=== PATIENT | female | born 1955 | race Caucasian/White ===

== ENCOUNTER 2020-05-21 05:03 | Emergency (ER) | payer MEDICARE, BC ==
[2020-05-21] MEDS ORDERED: Ondansetron 4 MG/2 ML SDV IVPUSH ONE (05:26)
[2020-05-21] MEDS ORDERED: HYDROmorphone 1 MG/ML Syringe IVPUSH ONE (05:26)
[2020-05-21] MEDS ORDERED: Sodium Chloride 0.9% 1,000 ML IV SCH (05:30)
[2020-05-21] MEDS ORDERED: Iopamidol 755 Mg/ML 100 ML Bottle IVPUSH ONE (05:33)
[2020-05-21] MEDS ORDERED: Sodium Chloride 0.9% 10 ML Syringe FLUSH PRN (05:33)
--- NOTE | 2020-05-21 05:33 | EDM.PDOC ---
ED HPI GENERAL MEDICAL PROBLEM - General Chief Complaint: Back Pain or Injury Stated Complaint: PAIN IN BACK AND DOWN LEFT ARM Time Seen by Provider: 05/21/20 05:08 Source of Information: Reports: Patient, Family () History Limitations: Reports: No Limitations - History of Present Illness INITIAL COMMENTS - FREE TEXT/NARRATIVE: Mrs. Montanez is a very pleasant 64-year-old woman with past medical history significant for lumbar degenerative disc disease and a L1 compression fracture that occurred on 01/24/2019, when she fell onto her back. She states that while it has been recommended that she have a lumbar fusion to address her lumbar disc disease, no surgery was recommended to address the compression fracture. She now presents to the ED stating that she woke with significant upper back pain, felt primarily between the scapula, although more on the left than the right, with radiation down her left upper extremity to the elbow, yesterday morning, 05/20/2020. She states that the pain is sharp and burning in character, but also states that she is not really sure. She has not identified any modifiers of the pain. She denies associated symptoms, such as anterior chest pain, palpitations, dyspnea, nausea, or diaphoresis. She denies left upper extremity weakness. No prior similar symptoms. The patient states that she took 3 baby aspirin this morning, otherwise, she has not taken any medications to treat her symptoms. Here in the ED, the patient's initial BP is found to be mildly elevated at 147/90, otherwise, she is hemodynamically stable, afebrile, saturating 97% on room air. Other than the patient's current symptoms, the patient denies recent fever, chills, sore throat, ear pain, nasal or sinus congestion, cough, dyspnea, chest pain, palpitations, nausea, vomiting, constipation, diarrhea, abdominal pain, urinary symptoms, recent weight gain or weight loss, recent bloody bowel movements or black bowel movements, recent joint aches, headaches, or rashes. The patient's PCP is KRISTA Maier, in [place]. Middle Back Pain Score (Numeric/FACES): 8 - Related Data Allergies Allergy/AdvReac Type Severity Reaction Status Date / Time No Known Allergies Allergy Verified 05/21/20 05:35 Home Meds: Home Meds Orphenadrine [Norflex] 1 tab PO Q12H PRN #14 tab.er 05/21/20 [Rx] Past Medical History HEENT History: Reports: Impaired Vision (wears glasses) Musculoskeletal History: Reports: Back Pain, Chronic (due to lumbar DDD), Fracture (L1 compression, 01/24/2019), Osteoarthritis Endocrine/Metabolic History: Reports: Other (See Below) (Prediabetes) - Past Surgical History Female Surgical History: Reports: Section (x 1), Tubal Ligation Musculoskeletal Surgical History: Reports: Knee Replacement (right) Social & Family History - Tobacco Use Smoking Status *Q: Current Every Day Smoker Years of Tobacco use: 42 Packs/Tins Daily: 0.5 Packs/Tins Daily Comment: Down from more than 1/2 ppd - Alcohol Use Alcohol Use History: No - Recreational Drug Use Recreational Drug Use: No - Living Situation & Occupation Living situation: Reports: , with Spouse 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 ED EXAM, UPPER BACK/NECK PAIN - Physical Exam Exam: See Below Exam Limited By: No Limitations General Appearance: Alert, WD/WN, Mild Distress (appears uncomfortable) Eye Exam: Bilateral Eye: EOMI, Normal Inspection Ears Exam: Normal External Exam, Hearing Grossly Normal Nose Exam: Normal Inspection Throat/Mouth Exam: Normal Inspection, Normal Lips, Normal Voice, No Airway Compromise Head Exam: Atraumatic, Normocephalic Neck Exam: Full Range of Motion, Normal Alignment, Normal Inspection Cardiovascular/Respiratory: Regular Rate, Rhythm, No M/R/G, Normal Peripheral Pulses, No JVD, Normal Breath Sounds, No Respiratory Distress GI/Abdominal: Normal Bowel Sounds, Soft, Non-Tender, No Organomegaly, No Distention, No Abnormal Bruit, No Mass (Female) Exam: Deferred Rectal (Female) Exam: Deferred Back Exam: Normal Inspection (no visible abnormality the patient's upper back, such as swelling, erythema, ecchymosis, or abrasion), Full Range of Motion. 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 As Tested, No Motor/Sensory Deficits, Alert, Oriented x 3 Psychiatric: Normal Affect Skin Exam: Normal Color, Warm/Dry EKG INTERPRETATION EKG Date: 05/21/20 Time: 05:33 Rhythm: NSR Rate (Beats/Min): 80 [place]: Normal P-Wave: Present QRS: Normal ST-T: Normal QT: Normal Comparison: NA - No Prior EKG Course - Vital Signs Last Recorded V/S: Last Vital Signs Temp Pulse 85 05/21/20 05:11 Resp 20 05/21/20 05:11 BP 147/90 H 05/21/20 05:11 Pulse Ox 97 05/21/20 05:11 - Orders/Labs/Meds Orders: Active Orders 24 hr Category Date Time Status EKG Documentation Completion [RC] STAT Care 05/21/20 05:25 Active Ang Chest [CT] Stat Exams 05/21/20 05:23 Taken Sodium Chloride 0.9% [Normal Saline] 1,000 ml Med 05/21/20 05:30 Active IV ASDIRECTED Sodium Chloride 0.9% [Normal Saline] 100 ml Med 05/21/20 05:45 Active IV ASDIRECTED Sodium Chloride 0.9% [Saline Flush] Med 05/21/20 05:33 Active 10 ml FLUSH ONETIME PRN Medication Orders Sodium Chloride (Normal Saline) 1,000 mls @ 100 mls/hr IV ASDIRECTED LYNNETTE Last Admin: 05/21/20 05:35 Dose: 100 mls/hr Documented by: KIERAN Sodium Chloride (Normal Saline) 100 mls @ 60 mls/hr IV ASDIRECTED LYNNETTE Last Admin: 05/21/20 05:55 Dose: 60 mls/hr Documented by: LM Sodium Chloride (Saline Flush) 10 ml FLUSH ONETIME PRN PRN Reason: Keep Vein Open Last Admin: 05/21/20 05:55 Dose: 10 ml Documented by: LM Labs: Laboratory Tests 05/21/20 05/21/20 Range/Units 05:29 05:29 WBC 8.71 (3.98-10.04) K/mm3 RBC 5.42 H (3.98-5.22) M/mm3 Hgb 16.9 H (11.2-15.7) gm/dl Hct 52.0 H (34.1-44.9) % MCV 95.9 H (79.4-94.8) fl MCH 31.2 (25.6-32.2) pg MCHC 32.5 (32.2-35.5) g/dl RDW Std Deviation 48.4 H (36.4-46.3) fL Plt Count 299 (182-369) K/mm3 MPV 10.2 (9.4-12.3) fl Neutrophils % (Manual) 59 (40-60) % Band Neutrophils % 0 (0-10) % Lymphocytes % (Manual) 32 (20-40) % Atypical Lymphs % 0 % Monocytes % (Manual) 7 (2-10) % Eosinophils % (Manual) 2 (0.7-5.8) % Basophils % (Manual) 0 L (0.1-1.2) Platelet Estimate Adequate RBC Morph Comment Normal Sodium 140 (136-145) mEq/L Potassium 3.9 (3.5-5.1) mEq/L Chloride 102 (98-107) mEq/L Carbon Dioxide 27 (21-32) mEq/L Anion Gap 14.9 (5-15) BUN 9 (7-18) mg/dL Creatinine 0.8 (0.55-1.02) mg/dL Est Cr Clr Drug Dosing 64.76 mL/min Estimated GFR (MDRD) > 60 (>60) mL/min BUN/Creatinine Ratio 11.3 L (14-18) Glucose 138 H (80-115) mg/dL Calcium 9.1 (8.5-10.1) mg/dL Magnesium 1.9 (1.8-2.4) mg/dl Total Bilirubin 0.2 (0.2-1.0) mg/dL AST 17 (15-37) U/L ALT 25 (14-59) U/L Alkaline Phosphatase 119 H (46-116) U/L Troponin I < 0.017 (0.00-0.056) ng/mL Total Protein 8.2 (6.4-8.2) g/dl Albumin 3.9 (3.4-5.0) g/dl Globulin 4.3 gm/dL Albumin/Globulin Ratio 0.9 L (1-2) Meds: Medications Generic Name Dose Route Start Last Admin Trade Name Freq PRN Reason Stop Dose Admin Sodium Chloride 1,000 mls @ 100 mls/hr 05/21/20 05:30 05/21/20 05:35 Normal Saline IV 100 mls/hr ASDIRECTED LYNNETTE Administration Sodium Chloride 100 mls @ 60 mls/hr 05/21/20 05:45 05/21/20 05:55 Normal Saline IV 60 mls/hr ASDIRECTED LYNNETTE Administration Sodium Chloride 10 ml 05/21/20 05:33 05/21/20 05:55 Saline Flush FLUSH 10 ml ONETIME PRN Administration Keep Vein Open Discontinued Medications Generic Name Dose Route Start Last Admin Trade Name Choloq PRN Reason Stop Dose Admin Hydromorphone HCl 1 mg 05/21/20 05:26 05/21/20 05:37 Dilaudid IVPUSH 05/21/20 05:27 1 mg ONETIME ONE Administration Iopamidol 100 ml 05/21/20 05:33 05/21/20 05:55 Isovue-370 (76%) IVPUSH 05/21/20 05:34 100 ml ONETIME ONE Administration Ondansetron HCl 4 mg 05/21/20 05:26 05/21/20 05:35 Zofran IVPUSH 05/21/20 05:27 4 mg ONETIME ONE Administration - Re-Assessments/Exams Free Text/Narrative Re-Assessment/Exam: 05/21/20 05:27 As above, the patient developed upper back pain, felt primarily between her scapulae, more on the left than the right, with radiation down her left upper extremity to her elbow, yesterday morning. Her pain is not modifiable, nor is it reproducible with palpation. No other symptoms, such as anterior chest pain, dyspnea, or palpitations. The etiology is not immediately clear, however, a worse case scenario would have to include an aortic dissection, therefore I have ordered a thoracic aortogram, along with blood work and an ECG. The aortogram will have the added benefit of being able to visualize the patient's thoracic vertebrae, in case her pain is due to an anatomic issue there. In the meantime, the patient will be given IV Dilaudid, IV Zofran, and IV fluid. 05/21/20 06:12 The patient's CBC is remarkable for a H/H elevated at 16.9/52.0, with the remainder of her CBC being unremarkable. Her CMP is remarkable for blood glucose mildly elevated at 138, and an alkaline phosphatase slightly elevated at 119, with the remainder of her CMP being unremarkable. Her magnesium level is within normal limits at 1.9. Her troponin is undetectably low. 05/21/20 06:40 CT angiogram of the chest is read by [facility] as: 1. No CT evidence of acute pulmonary embolism. 2. No CT evidence of acute aortic dissection, aneurysm or acute intramural thoracic aortic hematoma. 3. Borderline enlarged lymph nodes are present in the mediastinum and bilateral hilar areas. The largest lymph node measures 1.6 x 1.6 cm in the right pulmonary hilum on image 27 of series 4. 4. A questionable old chronic anterior wedge compression fracture involving the inferior vertebral body endplate of L1 is present with mild, less than 15% retrolisthesis of L1 upon L2 together with diminished disc height and vacuum disc phenomenon at the L1-L2 level. 5. Moderate chronic degenerative vertebral body endplate osteophytic disease is seen in the mid to lower thoracic spine. 6. Small subcentimeter hypodense nodules are present in the left thyroid lobe. No suspicious findings of soft tissue invasion or regional lymphadenopathy. No follow-up is recommended. 05/21/20 06:50 Test results discussed with the patient and her . As above, today's work-up is unremarkable and does not explain the cause of her pain, however, with the negative work-up, I suspect that her pain is musculoskeletal in etiology. For that reason, I am recommending that we start her on Norflex and ibuprofen. The patient agreed. I will submit a prescription for Norflex to the only pharmacy that will be open today = the [facility] in the [employer] store, which will only be open between 1:00 and 3:00 PM, today being May 21. The patient can take that along with [id number] ibuprofen. If she continues to have the same pain by 05/23/2020, I would like her to follow- up with her PCP for additional evaluation that may involve an MRI. Departure - Departure Time of Disposition: 06:52 Disposition: Home, Self-Care 01 Condition: Good Clinical Impression: Back pain - Discharge Information *PRESCRIPTION DRUG MONITORING PROGRAM REVIEWED*: Not Applicable *COPY OF PRESCRIPTION DRUG MONITORING REPORT IN PATIENT TOÑO: Not Applicable Referrals: Veena Yepez PA [Primary Care Provider] - Forms: ED Department Discharge Additional Instructions: You were seen in the emergency room after waking with upper back and left upper arm pain yesterday morning. Work-up in the ER included blood work, a CT angiogram of your chest, and an ECG. Your entire work-up was unremarkable, and does not explain the cause of your symptoms. You do not have an aortic dissection. You have not suffered a heart attack. You do not have a blood clot in your lungs. You do not have pneumonia. You do not have a collapsed lung. No broken bones or significant anatomic abnormalities were found in your spine. Based on your history, physical exam, and ER tests, the cause of your back and arm pain is thought to be due to a muscle spasm. You have been started on the muscle relaxant Norflex, and a prescription for Norflex has been sent to the [facility] located in the [employer] store. Because today is May 21, the pharmacy will be open only between the hours of 1:00 and 3:00 this afternoon. Take 1 tablet of Norflex every 12 hours, starting this evening, 05/21/2020, as prescribed. Norflex works well with ibuprofen. We recommend that you take 3 tablets (600 mg) every 8 hours, with food, as needed for discomfort. If you are still having significant pain by 05/23/2020, we recommend that you follow-up with your PCP, KRISTA Maier, for further evaluation that mi ght include an MRI. If any other problems, please do not hesitate to return to the ER. Sepsis Event Note (ED) - Evaluation Sepsis Screening Result: No Definite Risk - Focused Exam Vital Signs: Vital Signs Pulse Resp BP Pulse Ox 05/21/20 05:11 85 20 147/90 H 97 - My Orders Last 24 Hours: My Active Orders 05/21/20 05:23 Ang Chest [CT] Stat 05/21/20 05:25 EKG Documentation Completion [RC] STAT 05/21/20 05:30 Sodium Chloride 0.9% [Normal Saline] 1,000 ml IV ASDIRECTED 05/21/20 05:33 Sodium Chloride 0.9% [Saline Flush] 10 ml FLUSH ONETIME PRN 05/21/20 05:45 Sodium Chloride 0.9% [Normal Saline] 100 ml IV ASDIRECTED - Assessment/Plan Last 24 Hours: My Active Orders 05/21/20 05:23 Ang Chest [CT] Stat 05/21/20 05:25 EKG Documentation Completion [RC] STAT 05/21/20 05:30 Sodium Chloride 0.9% [Normal Saline] 1,000 ml IV ASDIRECTED 05/21/20 05:33 Sodium Chloride 0.9% [Saline Flush] 10 ml FLUSH ONETIME PRN 05/21/20 05:45 Sodium Chloride 0.9% [Normal Saline] 100 ml IV ASDIRECTED
[2020-05-21] MEDS ORDERED: Sodium Chloride 0.9% 100 ML IV SCH (05:45)
[2020-05-21] MEDS ORDERED: Orphenadrine 100 MG Tab.ER PO STA (06:50)
[2020-05-21] MEDS ORDERED: Ibuprofen 600 MG Tab PO ONE (06:50)
--- NOTE | 2020-05-21 09:45 | CT ---
CT chest Technique: Multiple axial sections were obtained from above the lung apices inferiorly through the lung bases. Intravenous contrast was utilized. Comparison: No prior chest imaging is available. Findings: Several small nonenhancing lesions are noted within the left lobe of the thyroid gland believed to be incidental. Aorta shows no aneurysm. No evidence of thoracic aortic dissection. Visualized pulmonary arteries show no filling defects of pulmonary embolism. Mediastinum shows mildly prominent lymph nodes measuring up to 2.3 cm. No pericardial thickening is seen. Visualized upper abdominal structures shows atherosclerotic change within the abdominal aorta with no aneurysm. No focal abnormality appreciated within the upper abdomen. Lung window settings were reviewed which shows scattered emphysematous change without acute pulmonary process being seen. Bone window settings were reviewed which shows scattered degenerative change throughout the spine. There is previous fracture within the inferior and superior endplate of L1. Margins of this are fairly smooth and this is most likely old. Mild spondylolisthesis is noted of L1 on L2 by about 5 mm. Impression: 1. Slightly prominent mediastinal lymph nodes. This may relate to old inflammatory process although recommend contrast enhanced chest CT in 6 months to confirm stability. This follow-up chest CT would occur in October,. 2. Old appearing fracture within the inferior and anterior aspect of L1. Degenerative change as noted above. 3. No findings of abdominal aortic aneurysm or aortic dissection. No pulmonary embolism seen within the visualized pulmonary arteries. 4. Other findings believed to be nonacute as described above. Diagnostic code #9 This report was dictated in MDT I agree with preliminary report from [facility], finalized on 05/21/20, 7:37 AM Central Daylight Time
== END 2020-05-21 07:08 | disposition home or self-care (01) ==
LOC: JD.ED 05:03
DX: M54.6 Pain in thoracic spine (principal); F17.210 Nicotine dependence, cigarettes, uncomplicated; Z79.82 Long term (current) use of aspirin
CPT/HCPCS: 36415; 71275; 80053; 83735; 84484; 85007; 85027; 93005; 96374; 96375; 99284; A9270; J1170; J2405; J7030; J7050; Q9967

== ENCOUNTER 2020-05-22 09:38 | Emergency (ER) | payer MEDICARE, BC ==
[2020-05-22] MEDS ORDERED: Ketorolac 60 MG/2 ML SDV IM ONE (10:07)
[2020-05-22] MEDS ORDERED: HYDROmorphone 1 MG/ML Syringe IM ONE (10:07)
--- NOTE | 2020-05-22 11:38 | EDM.PDOC ---
ED HPI GENERAL MEDICAL PROBLEM - General Chief Complaint: Upper Extremity Injury/Pain Stated Complaint: LEFT ARM PAIN Time Seen by Provider: 05/22/20 09:53 Source of Information: Reports: Patient History Limitations: Reports: No Limitations - History of Present Illness INITIAL COMMENTS - FREE TEXT/NARRATIVE: The patient presents with neck and left arm pain. She was here yesterday for the same. She had labs and a CT angio to look at the aorta. It appeared to be musckuloskeletal. She was given a muscle relaxer and that did not help. She has some tingling in her arm. 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: Musculoskeletal History: Reports: Back Pain, Chronic, Fracture, Osteoarthritis Other Musculoskeletal History: back Fx Endocrine/Metabolic History: Reports: Other (See Below) Other Endocrine/Metabolic History: prediabetes - Past Surgical History Female Surgical History: Reports: Section, Tubal Ligation Musculoskeletal Surgical History: Reports: Knee Replacement Social & Family History - Family History Family Medical History: Noncontributory - Tobacco Use Smoking Status *Q: Current Every Day Smoker Years of Tobacco use: 43 Packs/Tins Daily: 1 - Caffeine Use Caffeine Use: Reports: Coffee - Living Situation & Occupation Living situation: Reports: , with Spouse 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) Review of Systems - Review of Systems Review Of Systems: See Below Constitutional: Reports: No Symptoms Eyes: Reports: No Symptoms Ears: Reports: No Symptoms Nose: Reports: No Symptoms Mouth/Throat: Reports: No Symptoms Respiratory: Reports: No Symptoms Cardiovascular: Reports: No Symptoms GI/Abdominal: Reports: No Symptoms Genitourinary: Reports: No Symptoms Musculoskeletal: Reports: Neck Pain, Arm Pain ED EXAM, GENERAL - Physical Exam Exam: See Below Exam Limited By: No Limitations General Appearance: Alert, No Apparent Distress Ears: Normal External Exam Nose: Normal Inspection Head: Atraumatic, Normocephalic Neck: Normal Inspection Respiratory/Chest: No Respiratory Distress, Lungs Clear, Normal Breath Sounds Cardiovascular: Regular Rate, Rhythm, No Edema, No Murmur GI/Abdominal: Soft, Non-Tender, No Organomegaly, No Mass Back Exam: Other (Left upper back pain) Extremities: Other (Pain upon palpation to the left shoulder. Good sensation and pulses distally.) Neurological: Alert, Oriented, No Motor/Sensory Deficits Course - Vital Signs Last Recorded V/S: Last Vital Signs Temp 98.9 F 05/22/20 09:48 Pulse 72 05/22/20 09:48 Resp 16 05/22/20 09:48 BP 155/82 H 05/22/20 09:48 Pulse Ox 94 L 05/22/20 09:48 - Orders/Labs/Meds Meds: Medications Discontinued Medications Generic Name Dose Route Start Last Admin Trade Name [place] PRN Reason Stop Dose Admin Hydromorphone HCl 1 mg 05/22/20 10:07 05/22/20 10:13 Dilaudid IM 05/22/20 10:08 1 mg ONETIME ONE Administration Ketorolac Tromethamine 60 mg 05/22/20 10:07 05/22/20 10:13 Toradol IM 05/22/20 10:08 60 mg ONETIME ONE Administration - Re-Assessments/Exams Free Text/Narrative Re-Assessment/Exam: 05/22/20 11:37 I ordered a shot of dilaudid and toradol. She feels better after that. I will get her on some hydrocodone and I will order an MRI of her neck. Departure - Departure Time of Disposition: 11:40 Disposition: Home, Self-Care 01 Condition: Good Clinical Impression: Cervical radiculopathy - Discharge Information *PRESCRIPTION DRUG MONITORING PROGRAM REVIEWED*: Not Applicable *COPY OF PRESCRIPTION DRUG MONITORING REPORT IN PATIENT TOÑO: Not Applicable Referrals: Veena Yepez PA [Primary Care Provider] - 1 Week Additional Instructions: Take the norflex as prescribed. Take motrin or aleve for pain. If that does not help, try the hydrocodone. I have ordered an MRI of your cervical spine. Someone should be calling you with a time for this. Please return if you are worse. Sepsis Event Note (ED) - Evaluation Sepsis Screening Result: No Definite Risk - Focused Exam Vital Signs: Vital Signs Temp Pulse Resp BP Pulse Ox 05/22/20 09:48 98.9 F 72 16 155/82 H 94 L
== END 2020-05-22 12:00 | disposition home or self-care (01) ==
LOC: JD.ED 09:38
DX: M54.12 Radiculopathy, cervical region (principal); F17.210 Nicotine dependence, cigarettes, uncomplicated
CPT/HCPCS: 96372; 99283; J1170; J1885